=== PATIENT | female | born 1990 | race Caucasian/White ===

== ENCOUNTER → 2017-04-12 | Outpatient (CLI) | payer BC | LOC: C.PATHSPEC 15:13 | PROVIDERS: ATTEND Dentist Endodontics | DX: K09.9 Cyst of oral region, unspecified (principal) ==

== ENCOUNTER 2024-11-10 09:40 | Inpatient (IN) ==
[2024-11-10] MEDS ORDERED: ACETAMINOPHEN 500 MG TAB PO PRN (10:44)
[2024-11-10] MEDS ORDERED: LIDOCAINE 1% LOCAL 20 ML VIAL INFIL PRN (10:44)
[2024-11-10] MEDS ORDERED: CALCIUM CARBONATE 500 MG CHEWABLE TAB PO PRN (10:44)
[2024-11-10] MEDS: LACTATED RINGER'S 1,000 ML IV PRN (11:10)
[2024-11-10] MEDS: OXYTOCIN 30 UNITS/NSS 30 UNITS/500 ML BAG IV PRN ×2 (11:10→22:37)
[2024-11-10 11:19] LABS: Hematocrit (blood only) 38.5 % (37.0-47.0); Hemoglobin 13.3 g/dl (12.0-16.0); Mean Corpuscular Hemoglobin 30.9 pg (25.0-34.0); Mean Corpuscular Hgb Conc 34.5 g/dL (32.0-36.0); Mean Corpuscular Volume 89.5 fL (80.0-100.0); Mean Platelet Volume 9.3 fL (9.4-12.4); Platelet Count 223 K/uL (130-400); RDW Coefficient of Variation 12.1 % (11.5-14.5); RDW Standard Deviation 39.5 fL (36.4-46.3); White Blood Count 11.76 K/ul (4.8-10.8)
[2024-11-10] MEDS ORDERED: LIDOCAINE 2% MPF LOCAL 5 ML VIAL EPI PRN (15:09)
[2024-11-10] MEDS ORDERED: NALOXONE HCL 1 MG in SODIUM CHLORIDE 0.9% 1,000 ML IV PRN (15:09)
[2024-11-10] MEDS ORDERED: ROPIVACAINE 0.5% PF 5 MG/ML 20 ML VIAL EPI PRN (15:09)
[2024-11-10] MEDS ORDERED: BUPIVACAINE 0.25% PF 30 ML VIAL EPI PRN (15:09)
[2024-11-10] MEDS ORDERED: fentANYL 2 MCG/ML BUPIVacaine 0.125%-NSS 100ML BAG EPI PRN (15:09)
[2024-11-10] MEDS ORDERED: SODIUM CHLORIDE 0.9% PF INJ 10 ML VIAL EPI PRN (15:09)
[2024-11-10] MEDS ORDERED: NALBUPHINE HCL INJ 10 MG/ML AMP IV PRN (15:09)
[2024-11-10] MEDS ORDERED: NALOXONE HCL 0.4 MG/1 ML VIAL/CARP IV PRN (15:09)
[2024-11-10] MEDS ORDERED: fentaNYL citrate PF 100 MCG/2 ML VIAL EPI PRN (15:09)
[2024-11-10] MEDS ORDERED: diphenhydrAMINE 50 MG/ML VIAL IV PRN (15:09)
[2024-11-10] MEDS ORDERED: ePHEDrine sulfate 50 MG/ML AMP IV PRN (15:09)
--- NOTE | 2024-11-10 15:09 | Anesthesiology Consultation ---
Date of Service November 10, 2024 Assessment & Plan (1) Encounter for pre-operative examination: Chart Review Chart Review: Patient NOT seen in Pre Admission Testing and Acceptable Risk for Labor Epidural Consults Requested none History Height/Weight Height: 5 ft 8 in Weight: 81.647 kg Allergies Allergy/AdvReac Type Severity Reaction Status Date / Time No Known Allergies Allergy Verified 11/10/24 10:00 Medications Home Medications Medication Instructions Recorded Confirmed Last Taken 21-iron fu-folic acid 1 tab PO DAILY 03/16/24 11/10/24 11/10/24 08:15 [ Complete] magnesium 1 tab PO DAILY 11/10/24 11/10/24 11/09/24 21:00 vitamin B complex 1 tab PO DAILY 11/10/24 11/10/24 11/09/24 21:00 Active Medications Generic Name Dose Route Start Last Admin Trade Name Freq PRN Reason Stop Dose Admin Oxytocin 30 units in 500 mls @ 8 mls/hr 11/10/24 10:44 11/10/24 12:40 Pitocin 30 Units/Nss IV 11/12/24 10:43 0.48 units/hr .Q24H PRN 8 mls/hr Labor Induction/Augmentation Titration Protocol 0.48 UNITS/HR Lactated Ringer's 1,000 mls @ 125 mls/hr 11/10/24 10:44 11/10/24 11:10 Lr IV 11/12/24 10:43 125 mls/hr .Q8H PRN Administration L&D Protocol Protocol Past Medical History Medical History Varicella vaccination History of chicken pox Past Family History Family History Grandmother (Paternal) Breast cancer Denies family history of Ovarian cancer Colorectal cancer Past Surgical History Surgical History S/P appendectomy Social History Smoking Status: Never smoker Do You Dip or Chew Tobacco: No Hx Alcohol Use: No Hx Substance Use: No substance use type: does not use Physical Exam Vital Signs Last Vital Signs Temp 98.6 F 11/10/24 13:11 Pulse 82 11/10/24 14:39 Resp 18 11/10/24 13:11 BP 129/98 11/10/24 14:39 Testing Laboratory Results 11/10/24 11:00
[2024-11-10] MEDS: fentaNYL citrate PF 100 MCG/2 ML VIAL ONE (15:25)
[2024-11-10] MEDS: LIDOCAINE 2%/EPINEPHRINE 1:200,000 20 ML PF ONE (15:25)
[2024-11-10] MEDS: BUPIVACAINE 0.25% PF 30 ML VIAL ONE (15:25)
[2024-11-10] MEDS: fentANYL 2 MCG/ML BUPIVacaine 0.125%-NSS 100ML BAG ONE (15:28)
[2024-11-10] MEDS: SODIUM CHLORIDE 0.9% PF INJ 10 ML VIAL EPI STA (15:32)
[2024-11-10] MEDS: SODIUM CHLORIDE 0.9% PF INJ 10 ML VIAL ONE (15:32)
[2024-11-10] MEDS: fentaNYL citrate PF 100 MCG/2 ML VIAL EPI STA (15:32)
[2024-11-10] MEDS: LIDOCAINE 2%/EPINEPHRINE 1:200,000 20 ML PF EPI STA (15:32)
[2024-11-10] MEDS: BUPIVACAINE 0.25% PF 30 ML VIAL EPI STA (15:32)
--- NOTE | 2024-11-10 16:30 | History & Physical Report ---
Date of Service November 10, 2024 Assessment & Plan (1) Supervision of normal first : Plan: Harmony is a 34-year-old currently at 41 weeks 2 days gestational age with rupture of membranes since 2 PM yesterday. 1. Fetus: Category 1 tracing 2. Labor: Confirmed PROM. Recommended starting oxytocin and patient agreeable 3. Vitals within normal limits 4. GBS negative (2) PROM (premature rupture of membranes): History of Present Illness Primary Care Provider: NO PCP Harmony is a 34-year-old currently at 41 weeks 2 days gestational age presents with leakage of fluid since around 2 p.m. yesterday. Reports irregular contractions denies any vaginal bleeding OB Labs: Blood Type A Positive 03/27/24 Antibody Screen NEGATIVE 03/27/24 Hgb 12.8 g/dl (12.0-16.0) 08/11/24 Hct 37.4 % (37.0-47.0) 08/11/24 MCV 86.5 fL (80.0-100.0) 03/27/24 Plt Count 274 K/uL (130-400) 03/27/24 Rubella IgG Antibody Immune (Immune) 03/27/24 Treponema pallidum Ab Negative (Negative) 08/11/24 Hep Bs Antigen Negative (Negative) 03/27/24 Hepatitis C Antibody Negative (Negative) 03/27/24 HIV 1&2 Ab/P24 Ag 4thGn Negative (Negative) 03/27/24 Glucose 1 Hr 50 gm 93 mg/dl (70-130) 08/11/24 OB Optional Labs: Chlamydia trachomatis RNA Not Detected (NotDetected) 03/27/24 Neisseria gonorrhoeae RNA Not Detected (NotDetected) 03/27/24 Labs Reviewed: Horizon 14-negative--mln cfdna-low risk--mln Allergies Allergy/AdvReac Type Severity Reaction Status Date / Time No Known Allergies Allergy Verified 11/10/24 10:00 Home Medications Medication Instructions Recorded Confirmed Type 21-iron fu-folic acid 1 tab PO DAILY 03/16/24 11/10/24 History [ Complete] magnesium 1 tab PO DAILY 11/10/24 11/10/24 History vitamin B complex 1 tab PO DAILY 11/10/24 11/10/24 History Patient History Medical History Varicella vaccination History of chicken pox Surgical History S/P appendectomy Family History Grandmother (Paternal) Breast cancer Denies family history of Ovarian cancer Colorectal cancer Social History Smoking Status: Never smoker Do You Dip or Chew Tobacco: No; Hx Alcohol Use: No Hx Substance Use: No Preferred Language: Kiswahili Communication Ability: Effective Passenger Screener Required: No Beliefs That Will Affect Care: None marital status: marital status details: Terry Winchester (31) [phone] Current Living Situation: Spouse Current Living Situation Comment: Patient lives with spouse and dog. 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 Feels Safe at Home: Yes Safety Concerns: Feels Safe At This Time Physical Exam Genitourinary: Manual OB Exam: + cervical dilation 2 cm, + cervical effacement 70%, + station -2 and + amniotic fluid clear, nitrazine positive and ferning present OB Exam Monitor Tracing: + external FHT monitor used, + external uterine monitor used, + category I, + normal FHT variability and + variable decelerations (Single variable noted) Rupture confirmed on exam Results & Data Vital Signs (Past 12 Hours) Vital Signs Temp Pulse Resp BP 11/10/24 10:05 37.1 C 78 18 134/70 11/10/24 09:50 78 134/70 Coding Level of Care Code None Diagnoses Encounter for supervision of normal first in third trimester Z34.03 Trimester: third trimester Full-term premature rupture of membranes, unspecified duration to onset of labor O42.92 PROM onset of labor timing: unspecified duration between rupture of membranes and onset of labor PROM gestational age: full term (1) Supervision of normal first Trimester: third trimester Qualified Code(s): Z34.03 - Encounter for supervision of normal first , third trimester (2) PROM (premature rupture of membranes) PROM onset of labor timing: unspecified duration between rupture of membranes and onset of labor PROM gestational age: full term Qualified Code(s): O42.92 - Full-term premature rupture of membranes, unspecified as to length of time between rupture and onset of labor
[2024-11-10] MEDS: ePHEDrine sulfate 50 MG/ML AMP ONE (18:26)
[2024-11-10] MEDS: miSOPROStoL 200 MCG TAB PR ONE (22:12)
[2024-11-10] MEDS: METHYLERGONOVINE MALEATE 0.2 MG/ML AMP IM ONE (23:15)
[2024-11-10] MEDS ORDERED: bisacodyL 10 MG SUPP PR PRN (23:18)
[2024-11-10] MEDS ORDERED: OXYTOCIN 30 UNITS/NSS 30 UNITS/500 ML BAG IV PRN (23:18)
[2024-11-10] MEDS ORDERED: ACETAMINOPHEN 325 MG TAB PO PRN (23:18)
[2024-11-10] MEDS ORDERED: HYDROCORTISONE ACETATE 25 MG SUPP PR PRN (23:18)
--- NOTE | 2024-11-10 23:18 | Anesthesia Procedure Note ---
Date of Service November 10, 2024 Anesthesia Post Epidural Note Vital Signs Vital Signs: Temp Pulse Resp BP Pulse Ox O2 Del Method 37.0 C 98 H 18 138/72 98 Room Air 11/10/24 22:15 11/10/24 23:15 11/10/24 23:00 11/10/24 23:15 11/10/24 22:14 11/10/24 19:10 Pain Intensity Abdomen: Pain Intensity: 0 Notes Mental Status: alert / awake / arousable Nausea / Vomiting: adequately controlled Pain: adequately controlled Airway Patency, RR, SpO2: stable & adequate BP & HR: stable & adequate Hydration State: stable & adequate Neuraxial Anesthesia: was administered and sensory block is resolving Anesthetic Complications: no major complications apparent and Pt Satisfied with anesthetic care Epidural: Removed without complications and With tip intact
--- NOTE | 2024-11-10 23:21 | Delivery Summary ---
Vaginal Delivery Summary Date of Service November 10, 2024 Vaginal Delivery Summary and 1st Degree LAC Patient progressed to 10 cm dilated, 100% effaced and +2 station pushed over intact perineum with epidural anesthesia and delivered a viable with weight and Apgars pending. Head of the delivered without difficulty quickly followed by shoulders and body. was noted vigorous soon after delivery and a 1 minute delayed cord clamping was initiated. Cord was then double clamped and cut. Attention was turned to deliver the placenta which was fairly delayed in delivery. But appeared intact with three-vessel cord upon delivery. On speculum perineum vagina and cervix there is noted to be a first- degree perineal laceration and bilateral labial lacerations that were repaired with 3-0 Vicryl in continuous running stitch. Needle sponge and instrument counts were correct at the completion of the case. Both mother and stable in immediate postdelivery timeframe. No complications noted and blood loss per QBL in chart [facility] Vaginal Delivery Charge Delivery Type Details: and 1st Degree LAC
[2024-11-10] MEDS: DIPHTHER/TETAN/PERTUS Vaccine (Tdap, Adol/Adult) 0.5mL IM ONE (23:26)
[2024-11-11] MEDS: BENZOCAINE 20% SPRY 85 APPLN/85 GM CAN EXT PRN (00:14)
[2024-11-11 06:21] LABS: Hematocrit (blood only) 31.8 % (37.0-47.0); Hemoglobin 11.7 g/dl (12.0-16.0)
[2024-11-11] MEDS: DOCUSATE SODIUM 100 MG CAP PO SCH (07:41)
[2024-11-11] MEDS: IBUPROFEN 600 MG TAB PO PRN (07:41)
[2024-11-11] MEDS: FERROUS SULFATE 325 MG TAB PO SCH (07:41)
[2024-11-11] MEDS: PRENATAL VITAMIN 1 TAB PO SCH (07:41)
--- NOTE | 2024-11-11 08:40 | Obstetrical Progress Note ---
Date of Service November 11, 2024 Assessment & Plan (1) Encounter for care and examination after delivery: Day 1 status post vaginal delivery. Patient doing well denies any concerns today. Continue routine care Subjective Ambulation: ambulating normally Voiding: no voiding problems Passing Gas:: Yes Diet Tolerance:: regular diet Lochia:: Moderate Feeding Type:: breast feeding Physical Exam Constitutional WD/WN, vitals as above Respiratory normal respiratory effort; no respiratory distress and no labored breathing Cardiovascular Extremities: no calf tenderness Gastrointestinal (Abdomen) Inspection/Auscultation: abdomen normal to inspection; abdomen not distended Percussion/Palpation: abdomen soft; abdomen nontender, no guarding and abdomen not rigid Genitourinary OB Exam Abdomen: + fundal height Fundus: + firm and + relation to umbilicus (Below); not tender or not boggy Results & Data Vital Signs (Past 12 Hours) Vital Signs Temp Pulse Pulse Resp BP BP Pulse Ox 11/11/24 07:45 36.4 C L 70 16 127/75 96 11/11/24 05:00 36.9 C 82 18 130/76 97 11/11/24 00:45 36.9 C 86 18 132/75 98 11/11/24 00:15 18 11/11/24 00:00 18 11/11/24 00:00 85 132/63 11/10/24 23:45 83 11/10/24 23:45 137/69 11/10/24 23:30 88 11/10/24 23:30 130/71 11/10/24 23:15 18 11/10/24 23:15 98 H 11/10/24 23:15 138/72 11/10/24 23:00 18 11/10/24 23:00 104 H 11/10/24 23:00 133/74 11/10/24 22:45 18 11/10/24 22:45 97 H 11/10/24 22:45 133/70 11/10/24 22:30 18 11/10/24 22:30 94 H 11/10/24 22:30 122/57 L 11/10/24 22:17 91 H 11/10/24 22:17 126/64 11/10/24 22:15 37.0 C 18 11/10/24 22:14 98 11/10/24 22:14 93 H 11/10/24 22:12 37.0 C 11/10/24 22:09 97 11/10/24 22:09 87 11/10/24 22:04 97 11/10/24 22:04 85 11/10/24 22:02 96 H 11/10/24 22:02 136/73 11/10/24 21:59 98 11/10/24 21:59 89 11/10/24 21:54 98 11/10/24 21:54 86 11/10/24 21:49 98 11/10/24 21:49 96 H 11/10/24 21:48 88 11/10/24 21:48 132/68 11/10/24 21:44 99 11/10/24 21:44 97 H 11/10/24 21:39 99 11/10/24 21:39 104 H 11/10/24 21:34 99 11/10/24 21:34 93 H 11/10/24 21:32 99 H 11/10/24 21:32 136/70 11/10/24 21:30 18 11/10/24 21:30 18 11/10/24 21:29 97 11/10/24 21:29 107 H 11/10/24 21:24 98 11/10/24 21:24 99 H 11/10/24 21:19 99 11/10/24 21:19 118 H 11/10/24 21:14 99 11/10/24 21:14 109 H 11/10/24 21:09 100 11/10/24 21:09 122 H 11/10/24 21:04 99 11/10/24 21:04 94 H 11/10/24 21:04 122/69 11/10/24 20:59 98 11/10/24 20:59 97 H 11/10/24 20:54 99 11/10/24 20:54 92 H 11/10/24 20:49 99 11/10/24 20:49 97 H 11/10/24 20:47 86 11/10/24 20:47 114/55 L 11/10/24 20:45 37.4 C 11/10/24 20:44 97 11/10/24 20:44 95 H O2 Del Method 11/11/24 07:45 Room Air 11/11/24 05:00 Room Air 11/11/24 00:45 Room Air 11/11/24 00:15 11/11/24 00:00 11/11/24 00:00 11/10/24 23:45 11/10/24 23:45 11/10/24 23:30 11/10/24 23:30 11/10/24 23:15 11/10/24 23:15 11/10/24 23:15 11/10/24 23:00 11/10/24 23:00 11/10/24 23:00 11/10/24 22:45 11/10/24 22:45 11/10/24 22:45 11/10/24 22:30 11/10/24 22:30 11/10/24 22:30 11/10/24 22:17 11/10/24 22:17 11/10/24 22:15 11/10/24 22:14 11/10/24 22:14 11/10/24 22:12 11/10/24 22:09 11/10/24 22:09 11/10/24 22:04 11/10/24 22:04 11/10/24 22:02 11/10/24 22:02 11/10/24 21:59 11/10/24 21:59 11/10/24 21:54 11/10/24 21:54 11/10/24 21:49 11/10/24 21:49 11/10/24 21:48 11/10/24 21:48 11/10/24 21:44 11/10/24 21:44 11/10/24 21:39 11/10/24 21:39 11/10/24 21:34 11/10/24 21:34 11/10/24 21:32 11/10/24 21:32 11/10/24 21:30 11/10/24 21:30 11/10/24 21:29 11/10/24 21:29 11/10/24 21:24 11/10/24 21:24 11/10/24 21:19 11/10/24 21:19 11/10/24 21:14 11/10/24 21:14 11/10/24 21:09 11/10/24 21:09 11/10/24 21:04 11/10/24 21:04 11/10/24 21:04 11/10/24 20:59 11/10/24 20:59 11/10/24 20:54 11/10/24 20:54 11/10/24 20:49 11/10/24 20:49 11/10/24 20:47 11/10/24 20:47 11/10/24 20:45 11/10/24 20:44 11/10/24 20:44
[2024-11-11] MEDS: bisacodyL 5 MG TABEC PO SCH (19:54)
--- NOTE | 2024-11-12 06:51 | Obstetrical Progress Note ---
Date of Service November 12, 2024 Assessment & Plan (1) Encounter for assessment: Plan: Patient is PPD 2 s/p and doing well - Eating well, voiding well, ambulating well - vitals reviewed and within normal limits - pain well controlled with analgesics - OOB, ambulation, diet progression as tolerated - Blood type: A+, GBS neg, rubella immune - Plan to discharge today - After discharge, 6 week follow up with [facility] OBGYN Admission and Anticipated Discharge Date Admission Date: November 10, 2024 Supervising Physician Co-Signing Physician Notes Resident Physician Supervision Note: I interviewed and examined the patient. Discussed with Dr. Burdick and agree with findings and plan as documented in the note. Any exceptions or clarifications are listed here: [None] Documented By: Destiny Cordon MD, FACOG Subjective 34 yo post- day 2 s/p Ambulation: ambulating normally Voiding: no voiding problems Passing Gas:: Yes Diet Tolerance:: regular diet Lochia:: Small Feeding Type:: breast feeding Current Pain Level: 0/10 Resting comfortably this AM in NAD. Denies VINES, CP, SOB, N/V/D, LE pain/swelling. Physical Exam Physical Exam: General: patient resting comfortably, NAD, non-toxic in appearance, answers questions appropriately. Skin: warm, dry, intact HEENT: NC/AT, anicteric sclera, conjunctiva without injection, moist mucus membranes. Heart: +S1/S2, regular, no m/r/g Lungs: equal air entry bilaterally, no rales/rhonchi/wheezes Abd: +BS, soft, NT/ND, uterine fundus firm at umbilicus Ext: warm, no clubbing/cyanosis or edema Neuro: nonfocal, speech intact, no facial droop, moving all extremities. Results & Data Vital Signs (Past 12 Hours) Vital Signs Temp Pulse Resp BP Pulse Ox O2 Del Method 11/11/24 23:30 36.7 C 82 18 114/70 97 Room Air 11/11/24 20:00 36.8 C 79 18 115/72 98 Room Air Resident Activity Tracking Resident Involvement: Resident Care Provided Care Provided: OB Delivery
[2024-11-12 08:28] VITALS: BP 126/84; PULSE 74; RESP 16; TEMP 98.2; O2SAT 99
== END 2024-11-12 11:30 | disposition home or self-care (01) | DRG 807 ==
LOC: OPB 09:40 → 4S1 09:43 → 4E2 11-11 00:15